=== PATIENT | female | born 1960 ===

== ENCOUNTER 2021-04-14 06:00 | Day surgery (SDC) | payer OTHER ==
[~2021-04-14 06:00] MED LIST: ATORVASTATIN CA10 MG PO; AVAPRO75 MG PO; CYMBALTA60 MG PO; HORIZANT600 MG PO; LANTUS SOL100 UNIT/1; METFORMIN HCL1000 M2 PO; PACERONE100 MG PO; TOPROL XL25 M1 PO; TRULICITY0.75 MG/0.
== END 2021-04-14 10:05 | disposition home or self-care (01) ==
LOC: CIR.AMB 06:00 → EDBD 10:45 → CIR.AMB 10:45
PROVIDERS: ATTEND Orthopaedic Surgery Hand Surgery
DX: M93.1 Kienbock's disease of adults (principal)